=== PATIENT | male | born 1955 | race Caucasian/White ===

== ENCOUNTER 2023-08-12 04:24 | Day surgery (SDC) | payer OTHER ==
[2023-08-08 13:13] VITALS: BMI 40.2
[~2023-08-12 04:24] MED LIST: ceFAZolin SODIUM 1 GM VIAL IVPB ONE
[2023-08-12] MEDS ORDERED: LIDOCAINE HCL 1%, 10 MG/ML (20ML VIAL) ONE (09:40)
[2023-08-12] MEDS ORDERED: FENTANYL CITRATE/PF 50 MCG/ML VIAL ONE (10:58)
[2023-08-12] MEDS ORDERED: PROPOFOL 20 ML ONE (10:58)
[2023-08-12] MEDS ORDERED: ceFAZolin SODIUM 1 GM VIAL IVPB ONE (11:40)
[2023-08-12] MEDS ORDERED: BUPIVACAINE HCL/PF 0.5% (5MG/ML) 10 ML VIAL IJ ONE (11:42)
[2023-08-12] MEDS ORDERED: LIDOCAINE HCL 1%, 10 MG/ML (20ML VIAL) INF ONE (11:42)
[2023-08-12] MEDS ORDERED: ceFAZolin SODIUM 1 GM VIAL ONE ×3 (12:22)
[2023-08-12] MEDS ORDERED: ONDANSETRON 4 MG/2 ML VIAL IVPUSH PRN (12:31)
[2023-08-12] MEDS ORDERED: oxyCODONE HCL 5 MG TABLET PO PRN (12:31)
[2023-08-12] MEDS ORDERED: LACTATED RINGERS SOLUTION 1,000 ML IV SCH (12:45)
[2023-08-12 15:41] VITALS: RESP 20
[2023-08-12 16:58] VITALS: BP 125/60; PULSE 79; TEMP 97.7
== END 2023-08-12 16:40 ==
LOC: JASU-SURG 04:24
PROVIDERS: ATTEND Urology
PROC: 0VTTXZZ Resection of Prepuce, External Approach (ICD-10-PCS; principal; 2023-08-12 10:00)
DX: N47.1 Phimosis (principal)
CPT/HCPCS: 82962; 88304-TC; 94760